=== PATIENT | female | born 1955 | race Caucasian/White ===

== ENCOUNTER → 2020-09-10 | Day surgery (SDC) | payer OTHER ==
[~2020-09-10] VITALS: Ht 160 cm; Wt 72.6 kg
[~2020-09-10] MED LIST: ASA81BEC PO; ATORVASTATIN CA80 MG PO; HUMALOG KW100 UNIT/1 SUBQ; LANTUS SOL100 UNIT/1 SUBQ; METFORMIN HCL500 M1 PO; NEURONTIN 300M300 M2 PO; TRULICITY3 MG/0.5 M SUBQ; VITAMIN D3125 MC2 PO
== END | disposition home or self-care (01) ==
LOC: OR 06:04 → TBA 06:05 → OR 06:05
PROVIDERS: ATTEND Ophthalmology
DX: H02.413 Mechanical ptosis of bilateral eyelids (principal); Z53.8 Procedure and treatment not carried out for other reasons; E11.9 Type 2 diabetes mellitus without complications; E78.5 Hyperlipidemia, unspecified; Z98.890 Other specified postprocedural states; Z79.899 Other long term (current) drug therapy; Z79.4 Long term (current) use of insulin; Z79.82 Long term (current) use of aspirin